=== PATIENT | male | born 1965 | race American Indian/Alaskan Native ===

== ENCOUNTER 2017-03-15 07:19 | Outpatient (CLI) | payer BC ==
[2017-03-15 09:19] LABS: Basophils % (Auto) 0.8 % (0.0-1.8); Eosinophils % (Auto) 2.8 % (0.0-4.3); Hematocrit 49.6 % (35.5-45.6); Hemoglobin 16.6 gm/dl (11.8-15.2); Mean Corpuscular HGB Conc 34 % (32-34); Mean Corpuscular Hemoglobin 28 pg (28-32); Mean Corpuscular Volume 83 fl (84-94); Red Blood Count 5.96 M/mm3 (3.65-5.03); Red Cell Distribution Width 15.3 % (13.2-15.2); White Blood Count 4.6 K/mm3 (4.5-11.0)
[2017-03-15 09:59] LABS: Chloride 102.6 mmol/L (98-107); Potassium 3.3 mmol/L (3.6-5.0); Sodium 145 mmol/L (137-145)
[2017-03-15 10:00] LABS: Albumin 4.5 g/dL (3.9-5); Anion Gap 19 mmol/L; BUN/Creatinine Ratio 13.63; Blood Urea Nitrogen 15 mg/dL (9-20); Calcium 9.4 mg/dL (8.4-10.2); Carbon Dioxide 27 mmol/L (22-30); Glucose 135 mg/dL (75-100); Uric Acid 6.4 mg/dL (3.5-7.6)
[2017-03-15 10:22] LABS: Platelet Count 107 K/mm3 (140-440)
[2017-03-15 11:13] LABS: Sodium 24 Hour,Urine 327.6 (40-220)
[2017-03-17 19:21] LABS: Albumin 4.1 g/dL (3.8-4.8)
--- NOTE | 2017-03-18 07:18 | Vascular Lab Report ---
RENAL ARTERY DUPLEX EXAM: REASON FOR EXAM: Renal artery stenosis. NOTE: Visualization is technically abnormal kidney function. COMMENTS ON THE AORTA: The aorta is patent. Normal flow velocities are observed. No aneurysmal dilatation is noted. Mild atherosclerotic change is identified. The celiac artery is patent with normal flow velocity. The superior mesenteric artery is patent with normal flow velocity. COMMENTS ON THE RIGHT KIDNEY: The kidney measures 12.14 centimeters in greatest dimension. No obvious parenchymal abnormalities are noted. The renal artery is patent. Maximum systolic velocity is 131 cm/sec. This finding is consistent with less than 60% diameter reduction. Renal aortic index is 1.8. This finding is consistent with less than 60% diameter reduction. Overall findings are consistent with less than 60% diameter reduction in the renal artery. COMMENTS ON THE LEFT KIDNEY: The kidney measures 12.5 centimeters in greatest dimension. No obvious parenchymal abnormalities are noted. The renal artery is patent. Maximum systolic velocity is 92 cm/sec. This finding is consistent with less than 60% diameter reduction. Renal aortic index is 1.3. This finding is consistent with less than 60% diameter reduction. Overall findings are consistent with less than 60% diameter reduction in the renal artery. IMPRESSION: RIGHT KIDNEY: Less than 60% diameter reduction in the renal artery. LEFT KIDNEY: Less than 60% diameter reduction in the renal artery.
== END 2017-03-15 07:20 | disposition home or self-care (01) ==
LOC: VAS 07:19
PROVIDERS: ATTEND Internal Medicine Nephrology
DX: E11.8 Type 2 diabetes mellitus with unspecified complications (principal); I10 Essential (primary) hypertension; R94.4 Abnormal results of kidney function studies; G47.33 Obstructive sleep apnea (adult) (pediatric); M10.9 Gout, unspecified; R80.9 Proteinuria, unspecified
CPT/HCPCS: 36415; 76770; 80048; 82040; 82088; 82565; 82570; 82575; 84100; 84156; 84165; 84300; 84550; 85025; 93975